=== PATIENT | female | born 1945 | race Caucasian/White ===

== ENCOUNTER 2022-08-09 16:53 | Observation (INO) | payer MEDICARE, SELFPAY ==
[2022-08-09] VITALS (13 sets, daily range): BP systolic 87–148; BP diastolic 31–87; PULSE 72–85; RESP 9–18; TEMP 36.4–36.6; O2SAT 96–100; BMI 35.2
--- NOTE | ~2022-08-09 | XR_ITS ---
EXAMINATION: XR chest 1V portable Exam Date/Time: 08/09/2022 17:46 CDT HISTORY: syncope, HTN, HX OF ASTHMA Comparison: None. RESULT: Lines, tubes, and devices: None. Lungs and pleura: Linear bibasilar opacities, greater in the right lung base. Cardiomediastinal silhouette: Unremarkable. Other: No acute osseous or upper abdominal finding. IMPRESSION: Bibasilar atelectasis/consolidation greater in the right lower lung. Reviewed, dictated and finalized at location K.
--- NOTE | ~2022-08-09 | CT_ITS ---
EXAMINATION: CT brain wo con DATE: 08/09/2022 20:07 INDICATION: confusion, syncope . TECHNIQUE: Computed tomography (CT) of the head was performed without intravenous contrast. The mA wa s adjusted according to patient size. Iterative reconstruction technique was employed. The dose-lengt h product was 605.33 mGy-cm. COMPARISON: None. FINDINGS: No acute intracranial hemorrhage or extra-axial fluid collection. No hydrocephalus, mass, or herniation. No acute ischemic infarct. Unremarkable dural venous sinus attenuation. No acute osseous abnormality. Nodular mucosal thickening in the right maxillary sinus, the remaining aerated spaces are clear. Mild atrophy and chronic white matter change. Atherosclerotic intracranial calcification. Bilateral l ens replacements. IMPRESSION: No acute intracranial process. Reviewed, dictated and finalized at location K.
--- NOTE | ~2022-08-09 | CT_ITS ---
EXAMINATION: CTA chest PE protocol DATE: 08/10/2022 11:14 CDT INDICATION: Elevated d-dimer. TECHNIQUE: Computed tomographic angiography (CTA) of the chest was performed with 100 mL Omnipaque-35 0 intravenous contrast. The dose-length product was 661.46 mGy-cm. Maximum intensity projection 3D-re constructions of the aorta and other arteries were constructed by the technologist on a separate work station. Automated exposure control and iterative reconstruction technique were employed. COMPARISON: Chest x-ray dated 08/09/2022 FINDINGS: There are filling defects in left lower lobe subsegmental pulmonary arteries, consistent wi th pulmonary embolism. No significant pleural or pericardial effusion. There is a 1.8 cm low-density lymph node in the anterior mediastinum. There is atherosclerosis of the aorta and coronary arteries. No significant pleural or pericardial effusion. There is severe thoracic spondylosis. No endobronchia l lesion. No pneumothorax. There is dependent atelectasis. IMPRESSION: 1. Pulmonary embolism of the left lower lobe subsegmental pulmonary arteries, small thrombus burden. Dr. Yunior Dejesus discussed with the patient's nurse on second medical floor, Marian Pa at 08/10/2022 11:18 CDT. Reviewed, dictated and finalized at location A. IMPRESSION: 1. Pulmonary embolism of the left lower lobe subsegmental pulmonary arteries, s mall thrombus burden. Dr. Yunior Dejesus discussed with the patient's nurse on second medical floor, Geetha vinay Pa at 08/10/2022 11:18 CDT.
--- NOTE | ~2022-08-09 | US_ITS ---
EXAMINATION:US venous doppler LE BI INDICATION:Pulmonary embolism. TECHNIQUE: Multiple grayscale, color flow and Doppler images of the right and left lower extremity de ep venous systems were obtained and reviewed. COMPARISON:CT dated 08/10/2022 FINDINGS: The common femoral, superficial femoral and popliteal veins demonstrate normal respiratory variation, augmentation and compressibility. Color flow is also seen within the posterior tibial, pe roneal, greater saphenous and profunda veins. IMPRESSION: 1: No lower extremity deep venous thrombosis. Reviewed, dictated and finalized at location A.
--- NOTE | 2022-08-09 17:15 | ECG_ITS ---
Measurements Intervals [place] Rate: 72 P: -66 ME: 123 QRS: 22 QRSD: 118 T: 36 QT: 426 QTc: 466 Interpretive Statements ECTOPIC ATRIAL RHYTHM BASELINE WANDER- II, III, AVR, AVL, AVF ABNORMAL ECG NO PREVIOUS ECG AVAILABLE FOR COMPARISON Electronically Signed On 08-09-2022 20:55:46 CDT by Suhas Villanueva D.O.
--- NOTE | 2022-08-09 17:37 | ED.SYNCOPE ---
HPI - Syncope General Chief Complaint: Syncope Stated Complaint: syncope Time Seen by Provider: 08/09/22 17:20 Source: patient, EMS and RN notes reviewed Mode of arrival: EMS Limitations: no limitations History of Present Illness HPI narrative: This is a 77 year ol female with history of hypertension who presents for evaluation of a syncopal episode. Her son states that his family took patient out for a meal today. They had patient in a wheeled walker to sit down while they got the car. They states that patient started lowering her head down and she would not respond to them for 5 minutes. He states there was a nurse at the scene and they were unable to feel a pulse so they called 911. He states on EMS arrival patient became responsive. Patient states her family wheeled her outside and she fell asleep because she was tired. SHe states she did not hear them call her name. She reports having nausea currently. She denies chest pain, shortnesss of breath, diarrhea, vomiting, abdominal pain or fever. She also reports feeling like she needs to urinate. She has history of hypertension and she takes cozaar. She was found to be hypotensive in triage. Related Data Home Medications Medication Instructions Recorded Confirmed alprazolam 0.25 mg tablet mg 08/09/22 balsalazide 750 mg capsule mg PO 08/09/22 bupropion HCl 150 mg 24 hr tablet, mg PO 08/09/22 extended release dicyclomine 10 mg capsule mg 08/09/22 hydrocodone 10 mg-acetaminophen tablet 08/09/22 325 mg tablet losartan 25 mg tablet mg 08/09/22 nystatin 100,000 unit/mL oral 08/09/22 suspension pantoprazole 40 mg tablet,delayed mg PO 08/09/22 release pregabalin 100 mg capsule mg 08/09/22 solifenacin 5 mg tablet mg PO 08/09/22 zolpidem 10 mg tablet mg 08/09/22 Allergies Allergy/AdvReac Type Severity Reaction Status Date / Time No Known Allergies Allergy Verified 08/09/22 22:51 Review of Systems Constitutional: Constitutional: Reports weakness Cardiovascular: Cardiovascular: Denies syncope, Denies rapid heart rate, Denies irregular heart rhythm, Denies leg edema and Denies dyspnea Respiratory: Respiratory: Denies chest congestion, Denies hemoptysis, Denies excessive phlegm production and Denies dyspnea Gastrointestinal: Gastrointestinal: Denies abdominal pain, Denies hematochezia, Denies diarrhea, Reports nausea and Denies vomiting Genitourinary: Genitourinary: Denies hematuria and Denies dysuria Musculoskeletal: Musculoskeletal: Denies joint swelling, Denies loss of height and Denies muscle weakness Neurologic: Reports syncope, Denies focal weakness and Denies weakness PMFSH Past Medical History Medical History Fibromyalgia Hypertension Sjogren's disease Social History Social History (Updated 08/09/22 @ 22:39 by Liliana aBrr MD) Smoking status: Never smoker Exam Const: General: no acute distress and alert Nutritional Appearance: well nourished Orientation/consciousness: patient oriented x3 HENMT: Head: normal to inspection Throat: posterior oropharynx normal Eyes: EOM: EOMs intact bilaterally Neck: Neck: normal visual inspection Chest: Chest palpation & inspection: normal inspection of the chest Resp: Effort & Inspection: normal respiratory effort Auscultation: clear to auscultation bilaterally Cardio: Rate: regular rate Rhythm: regular rhythm Heart sounds: no murmurs GI: GI Palp: Yes Soft to palpation, No Tenderness to palpation present (GI), No Guarding due to palpation present (GI) and No Rigid due to palpation Auscultation: normal bowel sounds Skin: General skin exam: normal color Rashes: no rashes Wounds: no wounds Neuro: General: patient oriented x3, moves all extremities and CN's II-XI intact bilaterally Extrem: General: normal to inspection Psych: Mental Status: mental status grossly normal Affect: normal affect Attitude: cooperative Course
[2022-08-09 17:59] LABS: Basophils Absolute Auto 0.1 K/mm3 (0.0-0.1); Basophils Percent Auto 0.6 % (0.2-1.2); Eosinophils Absolute Auto 0.2 K/mm3 (0-0.3); Eosinophils Percent Auto 1.5 % (0-4.4); Hematocrit 41.2 % (37.0-47.0); Hemoglobin 13.4 g/dL (12.0-15.0); Immature Granulocyte Absolute 0.07 K/mm3 (0.00-0.031); Immature Granulocyte Percent A 0.6 % (0-0.5); Lymphocytes Absolute Auto 2.15 K/mm3 (0.9-3.2); Lymphocytes Percent Auto 19.6 % (18.3-44.2); Mean Corpuscular HGB Conc 32.5 g/dl (32-36); Mean Corpuscular Volume 92.4 fl (80-100); Mean Platelet Volume 9.5 fl (7.4-10.4); Monocytes Absolute Auto 0.9 K/mm3 (0.1-0.6); Monocytes Percent Auto 8.6 % (2.6-8.5); Neutrophils Absolute Auto 7.6 K/mm3 (1.3-6.7); Neutrophils Percent Auto 69.1 % (45.5-73.1); Platelet Count Result 332 k/mm3 (150-375); Red Blood Count 4.46 M/mm3 (4.2-5.4); Red Cell Distribution Width 13.4 % (11.5-14.5)
[2022-08-09] MEDS: SODIUM CHLORIDE 0.9% IV 1,000 ML 999 ML IV CONT ×3 (18:07→21:36)
[2022-08-09 18:14] LABS: Alanine Aminotransferase 16 U/L (6-35); Albumin Level 4.2 g/dL (3.5-5.1); Alkaline Phosphatase 65 U/L (38-126); Anion Gap 11 mmol/L (8-16); Aspartate Amino Transferase 26 U/L (14-36); Bilirubin,Total 0.6 mg/dL (0.2-1.3); Blood Urea Nitrogen 23 mg/dL (7-17); Calcium 8.9 mg/dL (8.4-10.2); Carbon Dioxide 26 mmol/L (22-30); Chloride 101 mmol/L (98-107); Estimated CRCL calculation 23 ml/min; Estimated Glomerular Filt Rate 27; Glucose 112 mg/dL (65-110); Potassium 3.2 mmol/L (3.4-5.0); Sodium 138 mmol/L (137-145)
[2022-08-09 19:12] LABS: Prothrombin Time 13.9 Seconds (11.1-14.7)
[2022-08-09 19:13] LABS: Lactic Acid Reflex 1.6 mmol/L (0.7-2.0); Lipase 47 U/L (23-300); Magnesium 1.8 mg/dL (1.6-2.3); Partial Thromboplastin Time 28.3 SECONDS (22.3-36.8)
[2022-08-09 19:21] LABS: D Dimer 3.81 ug/mL (<0.48)
--- NOTE | 2022-08-09 19:21 | PC.NURSE ---
1909 - Assumed pt care from JEWEL Riggs
[2022-08-09 19:25] LABS: NT Pro B Type Natriuretic Pept 212 pg/mL (19.9-100); Troponin I < 0.012 ng/mL (0.000-0.034)
[2022-08-09] MEDS: ENOXAPARIN 100 MG/ML SYRINGE 85 MG SUB-Q (21:36)
[2022-08-09] MEDS: POTASSIUM CHLORIDE 20 MEQ TABLET 40 MEQ PO (21:38)
--- NOTE | 2022-08-09 21:47 | PC.NURSE ---
2146 - Attempted to call report to JEWEL Hawthorne. Currently in a room with a pt. Will call back in 5-10 minutes.
[2022-08-09 21:52] LABS: Appearance Urine Cloudy (Clear); Bacteria Urine None Seen /hpf; Bilirubin Urine 1+ (Negative); Blood Urine Negative (Negative); Color Urine Dark Yellow (Yellow); Glucose Urine UA Negative (Negative); Hyaline Casts Urine Present /lpf; Ketones Urine Negative (Negative); Leukocyte Esterase Ur Negative LEU/UL (Negative); Nitrate Urine Negative (Negative); Non Pathogenic Casts >20; Protein Urine Trace mg/dL (Negative); RBC Urine 0-2 /hpf (0-2); Specific Grav Ur 1.018 (1.001-1.035); Squamous Epithelial Cell Urine Few /hpf (Few); Urobilinogen Urine 0.2 mg/dL (<2.0); WBC Urine 0-5 /hpf
[2022-08-09 21:58] LABS: Add Urine Microscopic? YES
--- NOTE | 2022-08-09 22:17 | ADMGEN ---
This patient, Amarilis Montalvo, was admitted to Medical Room 244-. Patient/family oriented to hospital policies and general routines including ID bracelet, bed and alarms, visiting hours, pain management, procedures, bathroom and other care routines, personal items, smoking policy, room service/diet, and visiting hours. Information on how to activate the Rapid Response Team has been discussed. Patient/Family are encouraged to report perceived risks to care and to ask questions if they do not understand what they are told or what they should do.
--- NOTE | 2022-08-09 23:23 | PM.IMHP ---
H&P: HPI History of Present Illness Date/Time: 08/09/22 23:23 Chief Complaint: Passed out Narrative: 77-year-old loquacious female with a past medical history of fibromyalgia, Sjogren syndrome, anxiety, depression and essential hypertension who presented to the ER after having a witnessed syncopal episode. The patient reports that she had felt a little bit more fatigued than usual today. But had a planned dinner out with family to celebrate her belated birthday. After dinner her daughter was pushing route to car on her wheeled walker when she became extremely pale and was unresponsive for the family. The patient does not remember these events and evidently had a syncopal episode. The that the bystanders stated that the patient was unconscious for 5 minutes. They checked her pulse and stated that her pulse was weak. They called EMS the patient was brought in. In the field the EMS reported the patient's blood pressures were in the 90 systolic. When the patient arrived to the ER she was pale and diaphoretic. Her blood pressure was 87/31. She reports that she probably has not been eating and drinking as much as usual. She states that with her Sjogren syndrome food often does not taste the same. But she states that she ate very well tonight. She even admits to having drink [place] while she was at dinner. She denies any nausea or vomiting. She does have a history of frequent urinary tract infections but has not been having any urinary symptoms. She denies any fevers or chills. She denies any chest pain or shortness of breath. She has not had any lower extremity swelling. She denies any cough or congestion. She does have chronic back pain and is on [place]. Her dose of pain medications and anxiety medications have not changed. She reports currently that she feels back to her baseline. She does admit that her urine has been darker recently. In the ER labs demonstrated concentrated urine and a creatinine of 1.8. The patient does report a history of chronic kidney disease but she does not know her baseline creatinine. Review of Systems Review of Systems: 12 systems were reviewed with pertinent positives and negatives per HPI. Except as documented in the HPI, all other systems were reviewed and are negative. [facility] Past Medical History Medical History (Updated 08/10/22 @ 04:14 by Tram Resendez DO) Anxiety Asthma Chronic kidney disease Depression Fibroid uterus Fibromyalgia GERD (gastroesophageal reflux disease) History of GI bleed (~2021) Hypertension Sjogren's disease Surgical History Surgical History (Updated 08/10/22 @ 04:18 by Tram Resendez DO) History of bilateral carpal tunnel release History of colectomy (~2004) Due to diverticulitis and associated adhesion lysis History of lumbar fusion (~2010) L2 through L5 Status post cataract extraction of both eyes with insertion of intraocular lens Family History Family History Mother Dementia Cancer determined by biopsy of breast Father Coronary arteriosclerosis Sibling Cancer of esophagus Social History Social History (Updated 08/10/22 @ 04:17 by Tram Resendez DO) Social History: She lives in [place] with her of 33 years. She has 2 biologic children and 2 living step children. She is a lifelong nonsmoker. She rarely drinks alcohol and only in small amounts. She denies any illicit substance use. She is a retired real estate loan processor. Code status: DNR/DNI per patient request Surrogate decision maker: Smoking status: Never smoker Alcohol intake: never Substance use: never Substance use type: does not use Lack of Transportation: No Lack of Food: Never True Current Housing: I Have Housing Concerned About Future Housing: No Difficulty Paying Gas/Electric Bills: No Difficulty Paying for Meds: No Currently Unemployed: No Education: [place]
[2022-08-09] MEDS: SODIUM CHLORIDE 0.9% IV 1,000 ML 125 ML IV CONT (23:33)
[2022-08-09] MEDS: HYDROcodone/acetaminophen (*CRX) 10-325 MG TABLET 1 TAB PO (23:33)
[2022-08-10] VITALS (11 sets, daily range): BP systolic 111–145; BP diastolic 53–61; PULSE 71–100; RESP 14–18; TEMP 36.4–36.9; O2SAT 95–100
[2022-08-10] MEDS: ZOLPIDEM TARTRATE (*CRX) 5 MG TABLET 10 MG PO ×2 (01:53→21:01)
[2022-08-10 05:13] LABS: Basophils Absolute Auto 0.1 K/mm3 (0.0-0.1); Basophils Percent Auto 0.5 % (0.2-1.2); Eosinophils Absolute Auto 0.2 K/mm3 (0-0.3); Eosinophils Percent Auto 1.8 % (0-4.4); Hematocrit 33.8 % (37.0-47.0); Hemoglobin 10.8 g/dL (12.0-15.0); Immature Granulocyte Absolute 0.05 K/mm3 (0.00-0.031); Immature Granulocyte Percent A 0.4 % (0-0.5); Lymphocytes Absolute Auto 2.37 K/mm3 (0.9-3.2); Lymphocytes Percent Auto 20.7 % (18.3-44.2); Mean Corpuscular Hemoglobin 29.5 pg (26-34); Mean Corpuscular Volume 92.3 fl (80-100); Mean Platelet Volume 9.5 fl (7.4-10.4); Monocytes Absolute Auto 0.9 K/mm3 (0.1-0.6); Neutrophils Absolute Auto 7.9 K/mm3 (1.3-6.7); Neutrophils Percent Auto 68.6 % (45.5-73.1); Platelet Count Result 273 k/mm3 (150-375); Red Blood Count 3.66 M/mm3 (4.2-5.4); Red Cell Distribution Width 13.3 % (11.5-14.5); White Blood Count 11.5 K/mm3 (4.5-10.0)
[2022-08-10 05:23] LABS: Alanine Aminotransferase 13 U/L (6-35); Albumin Level 3.1 g/dL (3.5-5.1); Alkaline Phosphatase 67 U/L (38-126); Anion Gap 5 mmol/L (8-16); Aspartate Amino Transferase 20 U/L (14-36); Bilirubin,Total 0.4 mg/dL (0.2-1.3); Blood Urea Nitrogen 21 mg/dL (7-17); Calcium 7.5 mg/dL (8.4-10.2); Carbon Dioxide 23 mmol/L (22-30); Chloride 109 mmol/L (98-107); Estimated CRCL calculation 40 ml/min; Estimated Glomerular Filt Rate 54; Glucose 96 mg/dL (65-110); Potassium 3.6 mmol/L (3.4-5.0); Sodium 137 mmol/L (137-145)
[2022-08-10] MEDS: FLUTICASONE/SALMETEROL 115-21 MCG INHALER 1 PUFF 2 PUFF INHALATION ×2 (08:08→20:06)
[2022-08-10] MEDS: buPROPion HCL XL (24 HR) 150 MG TABCR PO (08:21)
[2022-08-10] MEDS: SODIUM CHLORIDE 0.9% IV 1,000 ML 125 ML IV CONT ×2 (08:21→20:56)
[2022-08-10] MEDS: CITALOPRAM HYDROBROMIDE 20 MG TABLET 40 MG PO (08:22)
[2022-08-10] MEDS: DICYCLOMINE HCL 10 MG CAPSULE PO ×2 (08:22→16:26)
[2022-08-10] MEDS: PANTOPRAZOLE 40 MG TABLET PO ×2 (08:22→16:26)
[2022-08-10] MEDS: PREGABALIN (*CRX) 50 MG CAPSULE 100 MG PO ×2 (08:22→16:26)
[2022-08-10] MEDS: ENOXAPARIN 30 MG/0.3 ML SYRINGE SUB-Q (08:23)
[2022-08-10] MEDS: HYDROXYCHLOROQUINE SULFATE 200 MG TABLET PO ×2 (08:23→16:26)
--- NOTE | 2022-08-10 11:40 | PC.NURSE ---
Spoke with pharmacy about patient' s lovenox. Pt was given 85 mg lovenox 08/[address] Barraza of what pharmacy said.
--- NOTE | 2022-08-10 11:53 | WPDPN ---
Progress Note: A&P Assessment and Plan (1) Syncope: Qualifiers: Syncope type: unspecified Qualified Code(s): R55 - Syncope and collapse Code(s): R55 - Syncope and collapse Status: Acute (2) Dehydration: Code(s): E86.0 - Dehydration Status: Acute (3) Acute kidney injury: Code(s): N17.9 - Acute kidney failure, unspecified Status: Acute (4) Transient hypotension: Code(s): I95.9 - Hypotension, unspecified Status: Acute (5) Acute hypokalemia: Code(s): E87.6 - Hypokalemia Status: Acute Plan The patient had syncope likely due to hypotension from volume depletion/dehydration with resulted in acute kidney injury. The patient's blood pressure improved with adequate IV fluid hydration. Will hold patient's home antihypertensives. Will continue IV fluid hydration. Will monitor urine output closely. Will repeat BMP and CBC in a.m.. The patient will be placed on fall precautions. Ambulate with assist. Patient had hypokalemia likely due to decrease oral intake. Oral replacement was given in the ER. Will repeat electrolyte panel in a.m.. The patient has an elevated creatinine how much of this is acute versus acute on chronic kidney disease is uncertain as we do not know the patient's baseline. Given the patient has concentrated urine and was hypotensive his room she had some component of acute kidney due to hypotension and hypovolemia. Will hold both patient's ibuprofen and losartan. Continue IV fluid. Will continue the patient's home pain medications and anxiety medications as well as antidepressants. Will continue patient's chronic immunosuppressive therapy. 08/10/2022 interval history: 77-year-old female with history of sojourn syndrome status post fall and syncopal episode with elevated D-dimer concerning PE, CT of the chest does show patient has PE will treat the patient with therapeutic Lovenox and discuss tomorrow with the date night caregiver to start oral anticoagulation based on her insurance, to further evaluate will do the lower extremity Doppler, cardiac echo and carotid ultrasound. Will continue to monitor further recommendation to follow. Subjective Date/time seen: 08/10/22 11:53 Interval history: Passed out HPI-Narrative: ?77-year-old loquacious female with a past medical history of fibromyalgia, Sjogren syndrome, anxiety, depression and essential hypertension who presented to the ER after having a witnessed syncopal episode.? The patient reports that she had felt a little bit more fatigued than usual today.? But had a planned dinner out with family to celebrate her belated birthday.? After dinner her daughter was pushing route to car on her wheeled walker when she became extremely pale and was unresponsive for the family.? The patient does not remember these events and evidently had a syncopal episode.? The that the bystanders stated that the patient was unconscious for 5 minutes.? They checked her pulse and stated that her pulse was weak.? They called EMS the patient was brought in.? In the field the EMS reported the patient's blood pressures were in the 90 systolic.? When the patient arrived to the ER she was pale and diaphoretic.? Her blood pressure was 87/31.? She reports that she probably has not been eating and drinking as much as usual.? She states that with her Sjogren syndrome food often does not taste the same.? But she states that she ate very well tonight.? She even admits to having drink [place] while she was at dinner.? She denies any nausea or vomiting.? She does have a history of frequent urinary tract infections but has not been having any urinary symptoms.? She denies any fevers or chills.? She denies any chest pain or shortness of breath.? She has not had any lower extremity swelling.? She denies any cough or congestion.? She does have chronic back pain and is on [place].? Her dose of pain medications and anxiety medications have not changed.? She jessica
[2022-08-10] MEDS: HYDROcodone/acetaminophen (*CRX) 10-325 MG TABLET 1 TAB PO (14:19)
[2022-08-10] MEDS: ENOXAPARIN 60 MG/0.6 ML SYRINGE 50 MG SUB-Q (14:19)
[2022-08-10] MEDS: LIDOCAINE 5% PATCH 3 PATCH TRANSDERM (14:20)
--- NOTE | 2022-08-10 14:36 | PC.NURSE ---
Spoke with patient about having a family member bring balsalazide. She would like to wait to see if she discharges tomorrow
[2022-08-10] MEDS: ENOXAPARIN 80 MG/0.8 ML SYRINGE SUB-Q (20:52)
--- NOTE | 2022-08-11 | ECHO_ITS ---
Patient Info Name: Amarilis Montalvo Age: 77 years : 1945 Gender: Female Ht: 60 in Wt: 180 lbs BSA: 1.90 m2 HR: 87 bpm BP: 109 / 52 mmHg Technical Quality: Fair Exam Date: 08/11/2022 3:13 PM Exam Location: [facility] Pulmonary Exam Room: [facility] Patient Status: Inpatient Admit Date: 08/09/2022 Staff Ordering Physician: Lisa Barraza MD Reverse Logistics Analyst: Chelsey Zelaya RDCS Attending Provider: Tram Resendez DO Exam Type: CA echo doppler color flow Study Info Indications - PULMONARY EMBOLISM Complete two-dimensional, color flow and Doppler transthoracic echocardiogram is performed. Summary 1. Complete two-dimensional, color flow and Doppler transthoracic echocardiogram is performed. 2. Left ventricular chamber dimension is normal. 3. Left ventricular systolic function is normal, estimated at 60-65%. 4. The left ventricular diastolic function is grade I diastolic dysfunction. 5. E/e' 9 is minimally elevated. 6. Left atrial chamber dimension is mildly enlarged. 7. There is moderate aortic valve sclerosis. 8. There is mild aortic valve regurgitation. 9. No pulmonary hypertension, estimated pulmonary arterial systolic pressure is 27 mmHg. Left Ventricle E/e' 9 is minimally elevated. Left ventricular chamber dimension is normal. Left ventricular systolic function is normal, estimated at 60-65%. The left ventricular diastolic function is grade I diastolic dysfunction. Right Ventricle Right ventricular chamber dimension is normal. Right ventricular systolic function is normal. Left Atria Left atrial chamber dimension is mildly enlarged. Right Atria Right atrial chamber dimension is normal. Aortic Valve The aortic valve is trileaflet. There is moderate aortic valve sclerosis. There is no aortic valve stenosis. There is mild aortic valve regurgitation. Pulmonic Valve There is no pulmonic regurgitation. Mitral Valve There is no mitral valve stenosis. There is no mitral valve regurgitation. Tricuspid Valve There is no tricuspid valve regurgitation. No pulmonary hypertension, estimated pulmonary arterial systolic pressure is 27 mmHg. Pericardium/Pleural There is no pericardial effusion. Inferior Vena Cava Normal inferior vena cava with >50% collapse upon inspiration consistent with normal right atrial pressure, 5 mmHg. Aorta The aortic root size at the sinus of Valsalva is normal. Left Ventricular Outflow Tract Name Value Normal LVOT 2D LVOT Diameter 2.0 cm LVOT Doppler LVOT Peak Gradient 8 mmHg LVOT Mean Gradient 5 mmHg LVOT VTI 29 cm LVOT VTI/AV VTI Ratio 0.7 LVOT Stroke Volume 91 ml LVOT CO 19.4 l/min LVOT CI 10.2 l/min/m2 Pulmonic Valve Name Value Normal PV Doppler PV Peak Gradient 3 mmHg M
[2022-08-11] MEDS: HYDROcodone/acetaminophen (*CRX) 10-325 MG TABLET 1 TAB PO ×2 (02:08→08:34)
[2022-08-11 04:00] VITALS: PULSE 82
[2022-08-11] MEDS: SODIUM CHLORIDE 0.9% IV 1,000 ML 125 ML IV CONT (05:49)
[2022-08-11 06:00] VITALS: BP 109/52; PULSE 79; RESP 18; TEMP 36.8; O2SAT 99
[2022-08-11 07:32] LABS: Anion Gap 2 mmol/L (8-16); Blood Urea Nitrogen 13 mg/dL (7-17); Calcium 7.9 mg/dL (8.4-10.2); Carbon Dioxide 25 mmol/L (22-30); Chloride 114 mmol/L (98-107); Estimated CRCL calculation 56 ml/min; Estimated Glomerular Filt Rate > 60; Glucose 88 mg/dL (65-110); Potassium 3.9 mmol/L (3.4-5.0); Sodium 141 mmol/L (137-145)
[2022-08-11 08:00] VITALS: PULSE 87
[2022-08-11] MEDS: PREGABALIN (*CRX) 50 MG CAPSULE 100 MG PO ×2 (08:34→17:14)
[2022-08-11] MEDS: buPROPion HCL XL (24 HR) 150 MG TABCR PO (08:35)
[2022-08-11] MEDS: LIDOCAINE 5% PATCH 3 PATCH TRANSDERM (08:35)
[2022-08-11] MEDS: DICYCLOMINE HCL 10 MG CAPSULE PO ×2 (08:35→17:14)
[2022-08-11] MEDS: CITALOPRAM HYDROBROMIDE 20 MG TABLET 40 MG PO (08:35)
[2022-08-11] MEDS: ENOXAPARIN 80 MG/0.8 ML SYRINGE SUB-Q (08:36)
[2022-08-11] MEDS: HYDROXYCHLOROQUINE SULFATE 200 MG TABLET PO ×2 (08:36→17:12)
[2022-08-11] MEDS: PANTOPRAZOLE 40 MG TABLET PO ×2 (08:36→17:12)
[2022-08-11] MEDS: FLUTICASONE/SALMETEROL 115-21 MCG INHALER 1 PUFF 2 PUFF INHALATION (08:52)
[2022-08-11 12:00] VITALS: PULSE 86
[2022-08-11 14:40] VITALS: BP 130/64; PULSE 85; RESP 18; TEMP 36.8; O2SAT 100
[2022-08-11] MEDS: AMOXICILLIN 500 MG CAPSULE PO (14:53)
[2022-08-11 16:00] VITALS: PULSE 74
[2022-08-11] MEDS: APIXABAN 5 MG TABLET 10 MG PO (17:18)
--- NOTE | 2022-08-11 17:19 | PM.DS ---
DS: Admitting Diagnosis Discharge Date 08/11/2022 Admitting Diagnosis Passed out DS: Discharge Diagnosis Discharge Diagnosis (1) Syncope: Qualifiers: Syncope type: unspecified Qualified Code(s): R55 - Syncope and collapse Code(s): R55 - Syncope and collapse Status: Acute (2) Dehydration: Code(s): E86.0 - Dehydration Status: Acute (3) Acute kidney injury: Code(s): N17.9 - Acute kidney failure, unspecified Status: Acute (4) Transient hypotension: Code(s): I95.9 - Hypotension, unspecified Status: Acute (5) Acute hypokalemia: Code(s): E87.6 - Hypokalemia Status: Acute Plan The patient had syncope likely due to hypotension from volume depletion/dehydration with resulted in acute kidney injury. The patient's blood pressure improved with adequate IV fluid hydration. Will hold patient's home antihypertensives. Will continue IV fluid hydration. Will monitor urine output closely. Will repeat BMP and CBC in a.m.. The patient will be placed on fall precautions. Ambulate with assist. Patient had hypokalemia likely due to decrease oral intake. Oral replacement was given in the ER. Will repeat electrolyte panel in a.m.. The patient has an elevated creatinine how much of this is acute versus acute on chronic kidney disease is uncertain as we do not know the patient's baseline. Given the patient has concentrated urine and was hypotensive his room she had some component of acute kidney due to hypotension and hypovolemia. Will hold both patient's ibuprofen and losartan. Continue IV fluid. Will continue the patient's home pain medications and anxiety medications as well as antidepressants. Will continue patient's chronic immunosuppressive therapy. 08/10/2022 interval history: 77-year-old female with history of sojourn syndrome status post fall and syncopal episode with elevated D-dimer concerning PE, CT of the chest does show patient has PE will treat the patient with therapeutic Lovenox and discuss tomorrow with the senior caregiver to start oral anticoagulation based on her insurance, to further evaluate will do the lower extremity Doppler, cardiac echo and carotid ultrasound. Will continue to monitor further recommendation to follow. DS: Summary Hospital Course Reason for hospitalization: Chief Complaint: Passed out Narrative: ?77-year-old loquacious female with a past medical history of fibromyalgia, Sjogren syndrome, anxiety, depression and essential hypertension who presented to the ER after having a witnessed syncopal episode.? The patient reports that she had felt a little bit more fatigued than usual today.? But had a planned dinner out with family to celebrate her belated birthday.? After dinner her daughter was pushing route to car on her wheeled walker when she became extremely pale and was unresponsive for the family.? The patient does not remember these events and evidently had a syncopal episode.? The that the bystanders stated that the patient was unconscious for 5 minutes.? They checked her pulse and stated that her pulse was weak.? They called EMS the patient was brought in.? In the field the EMS reported the patient's blood pressures were in the 90 systolic.? When the patient arrived to the ER she was pale and diaphoretic.? Her blood pressure was 87/31.? She reports that she probably has not been eating and drinking as much as usual.? She states that with her Sjogren syndrome food often does not taste the same.? But she states that she ate very well tonight.? She even admits to having drink [place] while she was at dinner.? She denies any nausea or vomiting.? She does have a history of frequent urinary tract infections but has not been having any urinary symptoms.? She denies any fevers or chills.? She denies any chest pain or shortness of breath.? She has not had any lower extremity swelling.? She denies any cough or congestion.? She does have chronic back p
== END 2022-08-11 17:55 | disposition home or self-care (01) ==
LOC: ANHED 17:42 → ANH2MED 21:59
PROVIDERS: Emergency Medicine; Admitting Provider Internal Medicine; Emergency Provider General Practice; Visit Provider Family Medicine
DX: R55 Syncope and collapse (principal); E86.0 Dehydration; N17.9 Acute kidney failure, unspecified; I95.9 Hypotension, unspecified; E87.6 Hypokalemia; I10 Essential (primary) hypertension; F41.9 Anxiety disorder, unspecified; F32.A Depression, unspecified; R91.8 Other nonspecific abnormal finding of lung field; M79.7 Fibromyalgia; M35.00 Sjogren syndrome, unspecified; R06.02 Shortness of breath; G89.29 Other chronic pain; M54.9 Dorsalgia, unspecified; R94.31 Abnormal electrocardiogram [ECG] [EKG]; K21.9 Gastro-esophageal reflux disease without esophagitis; R97.1 Elevated cancer antigen 125 [CA 125]; Z79.51 Long term (current) use of inhaled steroids; Z79.1 Long term (current) use of non-steroidal anti-inflammatories (NSAID); Z79.891 Long term (current) use of opiate analgesic; Z79.899 Other long term (current) drug therapy
CPT/HCPCS: 36415; 70450; 71045; 71275; 80048; 80053; 81001; 83605; 83690; 83735; 83880; 84484; 85025; 85380; 85610; 85730; 93005; 93306; 93970; 94640; 96360; 96361; 96372; 99285; A9270; G0378; J1650; J7030; Q9967